=== PATIENT | male | born 1935 | race Caucasian/White ===

== ENCOUNTER 2018-06-11 16:04 | Inpatient (IN) | payer OTHER ==
[~2018-06-11] VITALS: Ht 185.4 cm; Wt 157.4 kg
--- NOTE | ~2018-06-11 | PROC ---
[address] [address] PROCEDURE REPORT Name: NED BROWN Room: [address] ADM IN M.R.#: [id number] Admission: 06/11/18 Attend Phys: Dale Kilpatrick MD Discharge: Date of : 37 Report #: [id number] THIS REPORT FOR: //name// For GI report, please see the Provation report in Perceptive 7 content. By: 0705Medical Records Staff ELDER /JASWINDER
--- NOTE | ~2018-06-11 | CON ---
[address] [address] CONSULTATION Name: NED BROWN Room: [address] IN .#: [id number] Admission: 06/11/18 Attend Phys: Dale Kilpatrick MD Discharge: Date of : 37 Report #: [id number] THIS REPORT FOR: //name// CC: Dale Patterson DATE OF SERVICE: 06/12/2018 REASON FOR CONSULTATION: Anemia and melanotic stool. HISTORY OF PRESENT ILLNESS: This is an 82-year-old male with history of AFib, who is on anticoagulation therapy. The patient reports that for the past couple of days, he has been having melanotic stool. His hemoglobin in the hospital was 10, but has dropped by 1 gram since admission. He denies any nausea, vomiting or hematemesis. He occasionally may have dysphagia type symptoms. The patient also reports that his last colonoscopy had been more than 5-10 years ago. He does not recall the findings. PAST MEDICAL HISTORY: Significant for: 1. History of AFib, on anticoagulation therapy. 2. Diabetes. 3. Anemia. 4. Diabetes mellitus. 5. ATN. ALLERGIES: No known drug allergy. MEDICATIONS: Please refer to MAR. SOCIAL HISTORY: The patient is a former smoker, but has not smoked for a year. He denies alcohol use. FAMILY HISTORY: Noncontributory. PHYSICAL EXAMINATION: VITAL SIGNS: Reveals blood pressure of 118/61, respirations 19, pulse 90, temperature 36.7. Note that he is on 4 liter of O2 nasal cannula and he uses nasal cannula during the night at home. LUNGS: Clear. CARDIOVASCULAR: Regular. ABDOMEN: Large, soft, nontender, nondistended. NEUROLOGIC: The patient is alert, oriented x 3. LABORATORY DATA: Reveal sodium of 146, potassium 4.2, BUN is 75, creatinine 1.4, glucose is 165, total bilirubin is 0.6, AST is 10, ALT 17, [place] [address] CONSULTATION Name: NED BROWN Gege Room: [address]#: [id number] Admission: 06/11/18 Attend Phys: Dale Kilpatrick MD Discharge: Date of : 37 Report #: [id number] phosphatase 59, lipase 271. TSH is 1.96. PT is 12.8, INR is 1.3. WBC is 8.5 with hemoglobin of 10.7 and platelet of 235. ASSESSMENT AND PLAN: The patient with melanotic stool and iron deficiency anemia. We will perform an upper endoscopy to rule out gastroduodenal ulcers. If this was negative, we will consider colonoscopy during this hospitalization. The patient is agreeable with plan. By: 1420 [id number] Clancy MD /nt
[2018-06-11 16:10] VITALS: BP 94/52
[2018-06-11 17:02] LABS: ABSOLUTE EOSINOPHILS 0.3 thou/uL (0.0-0.7); ABSOLUTE LYMPHOCYTES 1.1 thou/uL (0.8-5.3); ABSOLUTE MONOCYTES 0.7 thou/uL (0.0-1.2); ABSOLUTE NEUTROPHILS 6.4 thou/uL (1.6-8.1); BASOPHILS 0.5 %; EOSINOPHILS 3.2 %; HEMATOCRIT 33.5 % (42.0-52.0); HEMOGLOBIN 10.7 gm/dL (14.0-18.0); LYMPHOCYTES 12.5 %; MCH 28.9 pg (26.0-34.0); MCV 90.4 fL (80.0-100.0); MONOCYTES 7.7 %; NUCLEATED RBCS 0 /100WBC; PLATELET COUNT* 235 thou/uL (150-400); POLYS 76.1 %; RDW-CV 16.2 % (10.5-14.5); WBC 8.5 thou/uL (4.0-11.0)
[2018-06-11 17:10] LABS: INR 1.3; PROTIME 12.8 Seconds (9.20-11.50)
[2018-06-11 17:23] LABS: ANION GAP 4 mmol/L (7-16); BUN 75 mg/dL (7-18); CALCIUM 8.8 mg/dL (8.5-10.1); CHLORIDE 106 mmol/L (98-107); CO2 36 mmol/L (21-32); CREATININE 1.4 mg/dL (0.6-1.3); GLUCOSE 165 mg/dL (70-99); POTASSIUM 4.2 mmol/L (3.5-5.1); SODIUM 146 mmol/L (136-145)
[2018-06-11 17:27] LABS: ALBUMIN 2.6 g/dL (3.4-5.0); ALKALINE PHOSPHATASE 59 U/L (46-116); LIPASE 271 U/L (73-393); NT-PRO BRAIN NAT PEPTIDE 453 pg/mL (<300); SGOT 10 U/L (15-37); SGPT 17 U/L (30-65); TOTAL BILIRUBIN 0.6 mg/dL (<0.1-1.0); TOTAL PROTEIN 6.8 g/dL (6.4-8.2); TROPONIN-I LEVEL <0.06 ng/mL (<0.06)
[2018-06-11] MEDS ORDERED: PACERONE 200 M200 M1 PO (18:04)
[2018-06-11] MEDS ORDERED: NORVASC10 MG PO (18:04)
[2018-06-11] MEDS ORDERED: ELIQUIS5 MG PO (18:04)
[2018-06-11] MEDS ORDERED: COREG25 MG PO (18:05)
[2018-06-11] MEDS ORDERED: MIRALAX17 GM PO (18:05)
[2018-06-11] MEDS ORDERED: VITAMINC500 PO (18:06)
[2018-06-11] MEDS ORDERED: SULFACETAMIDE 115 M1 OPHTHALMIC (18:06)
[2018-06-11] MEDS ORDERED: B12INJ PO (18:06)
[2018-06-11] MEDS ORDERED: SYMBICORT160 MCG/4. INH (18:06)
[2018-06-11] MEDS ORDERED: DEMADEX20 MG PO (18:06)
[2018-06-11] MEDS ORDERED: VITAMIN D3400 UNIT PO (18:07)
[2018-06-11] MEDS ORDERED: COZAAR 25 MG TA25 M1 PO (18:07)
[2018-06-11] MEDS ORDERED: GLIPIZIDE-METF1 EAC1 PO (18:07)
[2018-06-11] MEDS ORDERED: PREDNISONE 10 M10 MG PO (18:08)
[2018-06-11] MEDS ORDERED: OMEGA 3 1,0001 EACH PO (18:08)
[2018-06-11] MEDS ORDERED: CRESTOR20 MG PO (18:08)
[2018-06-11] MEDS ORDERED: FLONASE 0.05%50 MCG NASAL (18:09)
[2018-06-11] MEDS ORDERED: MAPAP500 MG PO (18:09)
[2018-06-11] MEDS ORDERED: VOLTAREN GEL 1100 G1 TOP (18:10)
[2018-06-11 18:59] VITALS: BP 107/39
[2018-06-11 19:41] VITALS: BP 102/62
[2018-06-11 21:16] LABS: HEMATOCRIT 33.6 % (42.0-52.0); HEMOGLOBIN 10.8 gm/dL (14.0-18.0); MCH 28.8 pg (26.0-34.0); MCV 89.8 fL (80.0-100.0); RBC 3.74 mil/uL (4.50-6.00); RDW-CV 16.5 % (10.5-14.5)
[2018-06-11 22:04] LABS: % SATURATION 10 % (20-39); IRON 40 ug/dL (50-175)
[2018-06-12] VITALS (8 sets, daily range): BP systolic 88–118; BP diastolic 45–62
[2018-06-12 05:27] LABS: HEMATOCRIT 29.8 % (42.0-52.0); HEMOGLOBIN 9.6 gm/dL (14.0-18.0); MCH 29.6 pg (26.0-34.0); MCHC 32.3 g/dL (28.0-37.0); MCV 91.8 fL (80.0-100.0); MPV 8.6 fl. (7.2-11.1); RBC 3.25 mil/uL (4.50-6.00); WBC 8.8 thou/uL (4.0-11.0)
[2018-06-12 06:14] LABS: CALCIUM 8.5 mg/dL (8.5-10.1); CREATININE 1.3 mg/dL (0.6-1.3); MAGNESIUM 2.3 mg/dL (1.8-2.4); POTASSIUM 3.9 mmol/L (3.5-5.1)
--- NOTE | 2018-06-12 09:00 | EKG ---
[place] [address] ELECTROCARDIOGRAM REPORT Name: NED BROWN Room: [address] ADM IN .R.#: [id number] Admission: 06/11/18 Attend Phys: Dale Kilpatrick MD Discharge: Date of : 37 Report #: [id number] THIS REPORT FOR: //name// [facility] ED Test Date: 2018-06-11 Test Time: 16:28:44 Pat Name: NED BROWN Department: Room: [facility] Gender: M Trade Show Specialist: María Elena KYLE : 1935 Requested By: Radames Casas Order Number: [id number] MD: Joe Verdin Measurements Intervals [place] Rate: 74 P: [place]: QRS: -12 QRSD: 112 T: 66 QT: 396 QTc: 440 Interpretive Statements sinus rhythm Borderline intraventricular conduction delay Low voltage, precordial leads Baseline wander in lead(s) V2 No previous ECG available for comparison Electronically Signed On 06-12-2018 9:00:14 ASSISTANT by Joe Verdin [email or web address] <ELECTRONICALLY SIGNED> By: Joe Verdin MD, [facility] 06/12/18 0900 1628 1628 Joe Verdin MD, [facility] /EPI
[2018-06-12 17:26] LABS: BE 3.6 mmol/L (-2 to +3); pH 7.342 (7.340-7.450)
[2018-06-12 17:28] LABS: PCO2 57.2 mmHg (35.0-45.0); PO2 54.3 mmHg (75.0-100.0)
[2018-06-13 05:00] VITALS: BP 100/48
[2018-06-13 07:45] VITALS: BP 98/47
[2018-06-13 11:56] VITALS: BP 99/53
[2018-06-13 12:32] LABS: HEMATOCRIT 29.3 % (42.0-52.0); HEMOGLOBIN 9.4 gm/dL (14.0-18.0); MCH 29.1 pg (26.0-34.0); MCHC 32.2 g/dL (28.0-37.0); MCV 90.4 fL (80.0-100.0); MPV 8.7 fl. (7.2-11.1); RBC 3.24 mil/uL (4.50-6.00); RDW-CV 16.6 % (10.5-14.5); WBC 7.6 thou/uL (4.0-11.0)
[2018-06-13 12:39] LABS: CALCIUM 8.3 mg/dL (8.5-10.1); CREATININE 1.2 mg/dL (0.6-1.3); MAGNESIUM 2.2 mg/dL (1.8-2.4); POTASSIUM 4.3 mmol/L (3.5-5.1)
[2018-06-13 15:11] VITALS: BP 104/53
[2018-06-13 19:45] VITALS: BP 97/48
[2018-06-13 20:00] VITALS: BP 113/51
[2018-06-13 20:04] LABS: BE 2.2 mmol/L (-2 to +3)
[2018-06-13 20:16] LABS: HEMATOCRIT 29.3 % (42.0-52.0); HEMOGLOBIN 9.5 gm/dL (14.0-18.0); MCH 29.5 pg (26.0-34.0); MCHC 32.3 g/dL (28.0-37.0); MCV 91.3 fL (80.0-100.0); NUCLEATED RBCS 0 /100WBC; PLATELET COUNT* 202 thou/uL (150-400); RBC 3.21 mil/uL (4.50-6.00); RDW-CV 16.7 % (10.5-14.5); WBC 6.5 thou/uL (4.0-11.0)
[2018-06-13 20:29] LABS: CALCIUM 8.5 mg/dL (8.5-10.1); CREATININE 1.5 mg/dL (0.6-1.3); POTASSIUM 4.4 mmol/L (3.5-5.1)
[2018-06-13 20:39] LABS: ABSOLUTE LYMPHOCYTES 0.3 thou/uL (0.8-5.3); ABSOLUTE NEUTROPHILS 6.2 thou/uL (1.6-8.1)
[2018-06-13 20:40] LABS: ANISOCYTOSIS 1+; PLATELET ESTIMATE ADEQUATE
[2018-06-13 22:09] LABS: PCO2 72.5 mmHg (35.0-45.0); PO2 50.9 mmHg (75.0-100.0); pH 7.251 (7.340-7.450)
[2018-06-14] VITALS (10 sets, daily range): BP systolic 82–133; BP diastolic 42–70
--- NOTE | 2018-06-14 10:08 | CON ---
[address] [address] CONSULTATION Name: NED BROWN Room: [address] IN .R.#: [id number] Admission: 06/11/18 Attend Phys: Dale Kilpatrick MD Discharge: Date of : 37 Report #: [id number] THIS REPORT FOR: //name// CC: Dale Patterson REASON FOR CONSULTATION: Respiratory failure. HISTORY OF PRESENT ILLNESS: This is an 82-year-old male patient who was admitted to this facility on 06/11/2018 with anemia and melanotic stool. He has history of atrial fibrillation, on anticoagulation. Apparently, he was getting weaker and weaker with lethargy of few days' duration. His brought him to the hospital. Apparently, he had no nausea and no vomiting and he had no pain. Also, his mental status had been deteriorating for the last 6 months. There are reports of hallucination. He is not known to have history of dementia. He apparently was hypotensive in the ER and he had to be bolused with IV fluids. He was evaluated by GI during this hospitalization and he underwent endoscopy and he was also evaluated by Neurology. He had ABGs that demonstrated the followin.34//54 and this was done on 6 liter oxygen. Today, he is on 9 liters oxygen. He is arousable, protecting the airways, overweight gentleman, but he is a poor historian. He was able to tell me he smoked in the past, but quit a while ago, although he smoked for at least 20 years. He has oxygen at home and he could not tell me if he has COPD or not. LABORATORY DATA: His chest x-ray showed basilar infiltrate and signs of vascular congestion. His BNP was slightly elevated upon hospitalization. ALLERGIES: No known drug allergies. MEDICATIONS: Medications reviewed, which include risperidone, Protonix, insulin, potassium supplement, Zofran, melatonin and Tylenol. FAMILY HISTORY: Unobtainable. SOCIAL HISTORY: He is an ex-smoker, smoked for several number of years, not clear how many years for me, but no history of drug abuse or alcohol abuse. PAST MEDICAL HISTORY: Diabetes mellitus, obesity and atrial fibrillation. He has left below and right knee amputation. REVIEW OF SYSTEMS: Attempted with the patient. He denied fever, chills or blurring of vision. He denied any dysphagia or difficulty swallowing, although the nurses reported that she has concerns about him swallowing his pills. He denied shortness of breath, although he is on 9 liter oxygen. He denied change in urine habits or lower extremity edema. Please note, the patient is slightly confused and cannot verify the accuracy of the review [place] [address] CONSULTATION Name: NED BROWN Room: [address] IN ..#: [id number] Admission: 06/11/18 Attend Phys: Dale Kilpatrick MD Discharge: Date of : 37 Report #: [id number] PHYSICAL EXAMINATION: VITAL SIGNS: He is on 9 liters oxygen, O2 saturation of 91% to 92%, pulse rate of 86, breathing 20 times per minute and temperature 36.9. His blood pressure is 98/47. HEENT: Head normocephalic, atraumatic. Pupils are reactive to light. Oral cavity, moist mucous membrane. Mallampati of 3. External ears healthy and normal. NECK: Thick. CHEST: Diminished air movement bilaterally, with crackles. No definite wheezes. HEART: S1, S2. ABDOMEN: Obese, soft, lax and nontender. No masses felt. EXTREMITIES: Lower extremity, he has edema, right lower extremity. The left lower extremity is status post below-knee amputation. PSYCHIATRIC: Mood and affect difficult to evaluate, unable. NEUROLOGIC: Moving 4 extremities spontaneously. Confused. LYMPHATIC: No palpable lymph node. SKIN: Normal for age and race. LABORATORY DATA: His ABGs, as mentioned above. White blood count 8; hemoglobin 9.6, compared to 10.7 upon hospitalization and has platelets of 223,000. His INR is 1.3. His creatinine is 1.3 with elevated bicarbonate at 33, BUN of [address] scan of the head upon hospitalization did not show acute pathology. Chest x-ray upon hospitalization showed bibasilar opacities, atelectasis versus infiltrate, which was re-demonstrated on a repeat chest x-ray today, with signs of vascular congestion. IMPRESSION: 1. Hfuqn-zy-gxawuyi hypoxic and hypercapnic respiratory failure. 2. Chronic obstructive pulmonary disease. 3. Acute blood loss anemia. 4. Suspect obstructive sleep apnea. 5. The patient with elevated baseline bicarbonate level, suspect obesity hypoventilation syndrome. 6. Encephalopathy. 7. Gastrointestinal bleed. PLAN: At this point, with a pulmonary infiltrate, I cannot rule out infectious process, although atelectasis in differential diagnosis. I am going to start him on antibiotics. We will choose Zosyn due to history of mental status and concerns for aspiration. He will be on scheduled nebulization treatment. We will start him on noninvasive ventilation for now, support his breathing. Wean oxygen down as tolerated. He will be on scheduled nebulization treatments. [place] [address] CONSULTATION Name: NED BROWN Room: [address] IN [facility]#: [id number] Admission: 06/11/18 Attend Phys: Dale Kilpatrick MD Discharge: Date of : 37 Report #: [id number] Thank you for the consult. Of note, he might benefit from diuresis, but his blood pressure is borderline. <ELECTRONICALLY SIGNED> By: Chito Jaeger MD 06/14/18 1008 1151 1303Dsherrill Jaeger MD /nt
--- NOTE | 2018-06-14 10:28 | EKG ---
[place] [address] ELECTROCARDIOGRAM REPORT Name: NED BROWN Room: [address] ADM IN M.R.#: [id number] Admission: 06/11/18 Attend Phys: Dale Kilpatrick MD Discharge: Date of : 37 Report #: [id number] THIS REPORT FOR: //name// [facility] Test Date: 2018-06-13 Test Time: 20:00:22 Pat Name: NED BROWN Department: Room: [address] Gender: M Radio Communication Coordinator: [facility] : 1935 Requested By: Dale Kilpatrick Order Number: [id number] MD: Royer Song Measurements Intervals [place] Rate: 89 P: [place]: QRS: 65 QRSD: 119 T: -40 QT: 361 QTc: 440 Interpretive Statements Atrial fibrillation, rare pvc's Nonspecific intraventricular conduction delay Low voltage, extremity and precordial leads Compared to ECG 06/11/2018 16:28:44 Sinus rhythm no longer present Electronically Signed On 06-14-2018 10:28:10 STEAK SAUCE MAKER by Royer Song [email or web address] <ELECTRONICALLY SIGNED> By: Royer Song MD, FACC 06/14/18 1028 99 99 Royer Song MD, FAC /EPI
[2018-06-14 11:22] LABS: BE 4.6 mmol/L (-2 to +3); PCO2 49.8 mmHg (35.0-45.0); PO2 91.3 mmHg (75.0-100.0); pH 7.398 (7.340-7.450)
--- NOTE | 2018-06-14 11:51 | 2DMMODE ---
[place] [address] 2 D/M-MODE ECHOCARDIOGRAM Name: NED BROWN Room: [address] IN [facility]#: [id number] Admission: 06/11/18 Attend Phys: Dale Kilpatrick, Discharge: Date of : 39 Date of Service: 06/14/18 1151 Report #: [id number] THIS REPORT FOR: //name// APPROVED REPORT Study performed: 06/14/2018 10:38:48 EXAM: Comprehensive 2D, Doppler, and color-flow Echocardiogram Patient Location: In-Patient Room #: 224 Status: routine BSA: 2.72 HR: 92 bpm BP: 110/69 mmHg Rhythm: Atrial Fibrillation Other Information Study Quality: Good Indications Atrial Fibrillation Dyspnea 2D Dimensions IVSd: 13.35 (7-11mm) LVOT Diam: 20.06 (18-24mm) LVDd: 50.71 mm PWd: 14.32 (7-11mm) Ascending Ao: 38.07 (22-36mm) LVDs: 35.02 (25-40mm) Volumes Left Atrial Volume (Systole) LA ESV Index: 48.00 mL/m2 Aortic Valve AoV Peak Josh.: 2.60 m/s AO Peak Gr.: 27.07 mmHg LVOT Max P.70 mmHg AO Mean Gr.: 15.04 mmHg LVOT Mean P.80 mmHg LVOT Max V: 1.19 m/s AO V2 VTI: 46.86 cm LVOT Mean V: 0.76 m/s RUDOLPH (VTI): 1.51 cm2 LVOT V1 VTI: 22.43 cm Pulmonary Valve PV Peak Josh.: 1.08 m/s PV Peak Gr.: 4.63 mmHg Tricuspid Valve RAP Estimate: 15.00 [place] [address] 2 D/M-MODE ECHOCARDIOGRAM Name: NED BROWN Room: [address] IN [facility]#: [id number] Admission: 06/11/18 Attend Phys: Dale Kilpatrick, Discharge: Date of : 39 Date of Service: 06/14/18 1151 Report #: [id number] TR Peak Gr.: 23.31 mmHg RVSP: 38.00 mmHg PA Pressure: 38.00 mmHg Left Ventricle The left ventricle is normal size. There is normal LV segmental wall motion. Mild to moderate concentric left ventricular hypertrophy. Left ventricular systolic function is normal. The left ventricular ejection fraction is within the normal range. LVEF is 60-65%. This study is not technically sufficient to allow evaluation of the LV diastolic function due to atrial fibrillation. Right Ventricle The right ventricle is normal size. The right ventricular systolic function is normal. Atria Left atrium is severely dilated. The right atrium size is normal. Aortic Valve Severe aortic valve sclerosis. No aortic regurgitation is present. Moderate aortic stenosis. Mitral Valve There is mitral annular calcification. Trace mitral regurgitation. No evidence of mitral valve stenosis. Tricuspid Valve The tricuspid valve is normal in structure. Trace tricuspid regurgitation. estimated pa pressure 35 mm Hg Trace tricuspid regurgitation. estimated pa pressure 35 mm Hg Pulmonic Valve The pulmonary valve is normal in structure. Trace pulmonic regurgitation. Great Vessels The aortic root is normal in size. IVC is dilated and collapses <50% with inspiration. Pericardium There is no peric[place] [address] 2 D/M-MODE ECHOCARDIOGRAM Name: STEPHANIENED Room: [address] IN [facility].#: [id number] Admission: 06/11/18 Attend Phys: Dale Kilpatrick, Discharge: Date of : 37 Date of Service: 06/14/18 115 Report #: [id number] <Conclusion> Mild to moderate concentric left ventricular hypertrophy. LVEF is 60-65%. Left atrium is severely dilated. Moderate aortic stenosis. <ELECTRONICALLY SIGNED> By: Joe Verdin MD, [facility] 06/14/18 1151 115 1151 Jeo Verdin MD, FACC /INF
[2018-06-14 15:23] LABS: URINE BILIRUBIN NEGATIVE (Negative); URINE BLOOD 2+ (Negative); URINE COLOR YELLOW; URINE GLUCOSE-RANDOM NEGATIVE (Negative); URINE KETONES NEGATIVE (Negative); URINE LEUKOCYTES-REFLEX 1+ (Negative); URINE NITRITE-REFLEX NEGATIVE (Negative); URINE PROTEIN NEGATIVE (Negative); URINE UROBILINOGEN 0.2 E.U./dl (0.2-1.0)
[2018-06-14 15:26] LABS: URINE CLARITY HAZY
[2018-06-14 15:37] LABS: SQUAMOUS 0-3 Few /LPF (0-3)
[2018-06-14 15:38] LABS: BACTERIA-REFLEX None Seen /HPF (None Seen); CASTS None Seen /LPF (None Seen); URINE RBC 0-2 Rare /HPF (0-2); URINE WBC-REFLEX 0-5 Rare /HPF (0-5)
[2018-06-14 15:39] LABS: TRIPLE PHOSPHATE CRYSTALS 4-10 Moderate /LPF (None Seen)
--- NOTE | 2018-06-14 16:07 | PATH ---
[facility] [address] [place] [address] PATHOLOGY RPT PROCEDURE Name: STEPHANIEMICKY Room: [address] IN M.R.#: [id number] Admission: 06/11/18 Date of : 37 Discharge: Report #: [id number] Path Case #: [id number] [facility] Accession Number: [id number] . 01 Material submitted: . GASTRIC BIOPSY . 01 Clinical history: . None provided . 02 Diagnosis: Gastric biopsy: - Moderate chronic active gastritis with prominent atrophy, extensive intestinal metaplasia and easily identified Helicobacter pylori organisms, negative for granulomas and dysplasia. . (MARIA ELENA:mml; 06/14/2018) QLM/06/14/2018 . 02 Comment: Special stain: H. pylori immuno. . (MARIA ELENA:mml; 06/14/2018) . 02 Electronically signed: . Montez Goodrich MD, Pathologist NPI- [id number] . 01 Gross description: . The specimen is received in formalin, labeled "Micky Huertas, gastric biopsy". Received are two segments of pale guerrero soft tissue measuring 0.4 and 0.5 cm in maximum dimensions. The specimen is submitted entirely in cassette A1. (CAA; 06/13/2018) QAC/QAC . 02 Pathologist provided ICD-10: K29.50 . 02 CPT . 403860, Z94178 Specimen Comment: A courtesy copy of this report has been sent to Specimen Comment: [phone], , . Specimen Comment: Report sent to ,DR SAXENA / DR GARCIA Performed at: [address] [id number] MD Myke Mike MD Phone: [phone] [address] [address] PATHOLOGY RPT PROCEDURE Name: MICKY HUERTAS Room: [address] IN [facility]#: [id number] Admission: 06/11/18 Date of : 37 Discharge: Report #: [id number] Path Case #: [id number] Performed at: [address] [id number] MD Montez Goodrich MD Phone: [phone]
[2018-06-15] VITALS (20 sets, daily range): BP systolic 80–175; BP diastolic 44–142
[2018-06-15 09:15] LABS: CREATININE 1.4 mg/dL (0.6-1.3); MAGNESIUM 2.3 mg/dL (1.8-2.4); POTASSIUM 3.7 mmol/L (3.5-5.1)
[2018-06-15 10:42] LABS: BE 5.8 mmol/L (-2 to +3); PCO2 47.5 mmHg (35.0-45.0); PO2 63.2 mmHg (75.0-100.0); pH 7.431 (7.340-7.450)
[2018-06-16] VITALS (7 sets, daily range): BP systolic 83–132; BP diastolic 57–70
[2018-06-16 04:20] LABS: HEMATOCRIT 28.3 % (42.0-52.0); HEMOGLOBIN 9.3 gm/dL (14.0-18.0); MCH 29.4 pg (26.0-34.0); MCHC 32.8 g/dL (28.0-37.0); MCV 89.7 fL (80.0-100.0); MPV 8.9 fl. (7.2-11.1); RBC 3.16 mil/uL (4.50-6.00); RDW-CV 16.4 % (10.5-14.5); WBC 6.2 thou/uL (4.0-11.0)
[2018-06-16 04:56] LABS: CALCIUM 9.2 mg/dL (8.5-10.1); CREATININE 1.3 mg/dL (0.6-1.3); MAGNESIUM 2.2 mg/dL (1.8-2.4); POTASSIUM 3.4 mmol/L (3.5-5.1)
[2018-06-16 09:45] LABS: BE 5.2 mmol/L (-2 to +3); PCO2 48.8 mmHg (35.0-45.0); PO2 64.9 mmHg (75.0-100.0); pH 7.415 (7.340-7.450)
[2018-06-17] VITALS (9 sets, daily range): BP systolic 75–144; BP diastolic 47–76
[2018-06-17 05:05] LABS: HEMATOCRIT 28.2 % (42.0-52.0); HEMOGLOBIN 9.2 gm/dL (14.0-18.0); MCH 29.2 pg (26.0-34.0); MCHC 32.6 g/dL (28.0-37.0); MCV 89.3 fL (80.0-100.0); RBC 3.15 mil/uL (4.50-6.00); RDW-CV 17.1 % (10.5-14.5); WBC 6.9 thou/uL (4.0-11.0)
[2018-06-17 05:16] LABS: CALCIUM 8.8 mg/dL (8.5-10.1); CREATININE 1.3 mg/dL (0.6-1.3); MAGNESIUM 2.2 mg/dL (1.8-2.4); POTASSIUM 3.6 mmol/L (3.5-5.1)
[2018-06-18 01:07] VITALS: BP 143/75
[2018-06-18 04:00] VITALS: BP 133/64
[2018-06-18 04:45] LABS: HEMATOCRIT 26.8 % (42.0-52.0); HEMOGLOBIN 9.1 gm/dL (14.0-18.0); MCHC 33.9 g/dL (28.0-37.0); MCV 88.6 fL (80.0-100.0); MPV 9.2 fl. (7.2-11.1); RBC 3.02 mil/uL (4.50-6.00); RDW-CV 16.7 % (10.5-14.5)
[2018-06-18 05:02] LABS: CALCIUM 8.8 mg/dL (8.5-10.1); CREATININE 1.2 mg/dL (0.6-1.3); MAGNESIUM 2.2 mg/dL (1.8-2.4); POTASSIUM 3.4 mmol/L (3.5-5.1)
[2018-06-18 08:20] VITALS: BP 113/60
[2018-06-18 12:00] VITALS: BP 132/70
[2018-06-18 20:00] VITALS: BP 138/81
[2018-06-19 04:00] VITALS: BP 123/63
[2018-06-19 04:43] LABS: HEMATOCRIT 29.8 % (42.0-52.0); HEMOGLOBIN 9.4 gm/dL (14.0-18.0); MCH 28.5 pg (26.0-34.0); MCHC 31.6 g/dL (28.0-37.0); MCV 90.1 fL (80.0-100.0); MPV 9.4 fl. (7.2-11.1); RBC 3.31 mil/uL (4.50-6.00); RDW-CV 16.9 % (10.5-14.5); WBC 8.7 thou/uL (4.0-11.0)
[2018-06-19 05:42] LABS: CALCIUM 8.5 mg/dL (8.5-10.1); CREATININE 0.9 mg/dL (0.6-1.3); POTASSIUM 3.6 mmol/L (3.5-5.1)
[2018-06-19 08:00] VITALS: BP 121/67
[2018-06-19 11:51] VITALS: BP 140/70
[2018-06-19 16:00] VITALS: BP 145/82
[2018-06-19 20:00] VITALS: BP 136/74
[2018-06-20] VITALS: BP 145/66
[2018-06-20 04:45] VITALS: BP 103/50
[2018-06-20 08:00] VITALS: BP 121/53
[2018-06-20 13:06] LABS: HEMATOCRIT 31.1 % (42.0-52.0); MCH 28.7 pg (26.0-34.0); MCV 89.6 fL (80.0-100.0); MPV 8.4 fl. (7.2-11.1); NUCLEATED RBCS 0 /100WBC; PLATELET COUNT* 276 thou/uL (150-400); RBC 3.47 mil/uL (4.50-6.00); RDW-CV 16.7 % (10.5-14.5); WBC 14.2 thou/uL (4.0-11.0)
[2018-06-20 13:27] LABS: CALCIUM 8.2 mg/dL (8.5-10.1); CREATININE 0.9 mg/dL (0.6-1.3); POTASSIUM 3.3 mmol/L (3.5-5.1)
[2018-06-20 13:32] LABS: ABSOLUTE NEUTROPHILS 14.2 thou/uL (1.6-8.1); PLATELET ESTIMATE ADEQUATE
--- NOTE | 2018-06-20 14:09 | CON ---
[address] [address] CONSULTATION Name: NED BROWN Room: [address] IN .R.#: [id number] Admission: 06/11/18 Attend Phys: Dale Kilpatrick MD Discharge: Date of : 37 Report #: [id number] THIS REPORT FOR: //name// CC: Dale Patterson DATE OF SERVICE: 06/12/2018 HISTORY OF PRESENT ILLNESS: This is an 82-year-old male patient who was evaluated by me for memory problems. According to the family and the patient, the memory problem started about 1 year ago. It was predominantly for short-term memory. It started spontaneously without any trauma. There was no aggravating or relieving factors for that. In the last few months, it has become worse and especially in the last month or so. He is feeling dizzy, he is feeling weak and his memory problem is worse. His examination was carried out and it was noticed that he is severely anemic with an hemoglobin of 9.6. He also is hypotensive. That is being worked up. REVIEW OF SYSTEMS: Indicate that he had some hallucination. He was recommended to have evaluation for sleep apnea. He will not go there. They gave him some portable device and he wore that for 2 hours and then after that will not wear it. He has a history of atrial fibrillation and he is on anticoagulation. He does look like somewhat hard of hearing. He does have a history of diabetes. He has a history of amputation on the left side. This was his relevant 14-point review of system. He indicate his vision is about the same. He does have some respiratory difficulty. He denies any GI, , musculoskeletal, constitutional, dermatological, hematological, psychiatric, throat, allergic symptom associated with present symptomatology. PAST MEDICAL HISTORY: Positive for memory problems going on for a year or so. FAMILY HISTORY: Negative for early age stroke. SOCIAL HISTORY: He has a pretty supportive family and I talked to them. PHYSICAL EXAMINATION: Indicate the patient is alert, responsive. He did not know what month it is. He could not tell me what hospital he is in. He is also hard of hearing. His speech looks intact, but memory and fund of knowledge is diminished. Cranial nerve examination 2-12 is unremarkable. He cannot keep his eyes open all the time. He could not cooperate with the fundus examination. He appeared to be weak all over. I tried to do the position sense in the right leg. I am not sure he understands the instructions very well. His tone is unremarkable. Reflexes are diminished as expected with diabetes. There [place] [address] CONSULTATION Name: STEPHANIENED Gege Room: [address] IN ..#: [id number] Admission: 06/11/18 Attend Phys: Dale Kilpatrick MD Discharge: Date of : 37 Report #: [id number] PHYSICAL EXAMINATION: He is an obese individual who does not have any dysmorphic features of eyes, ears and face. Pulses in the right leg is difficult to feel. He has a history of atrial fibrillation. He does appear to have some respiratory difficulty. His blood pressure is 97/51, respirations 34, pulse is 86, temperature is 97.5. LABORATORY DATA: His white count is 8.8. His sodium is low-high at 148. B12 and TSH is normal. He did have a CT scan of the head, which showed no acute changes. IMPRESSION: I suspect this patient is developing dementia. That got decompensated because of multiple systemic problems. That includes anemia, but more importantly include respiratory problems with undiagnosed and untreated sleep apnea as the prime suspect. He has been recommended that evaluation, he did have some evaluation, but he will not do the proper evaluation until he does need that. RECOMMENDATIONS: 1. We will await systemic evaluation at the prior moment. 2. I will get an EEG done. 3. He will need full neurological workup, but that need to be done as an outpatient. 4. He needs a sleep study and again that may have to be done as an outpatient. <ELECTRONICALLY SIGNED> By: Yefri Rebolledo MD 06/20/18 1409 1035 1208Yefri Rebolledo MD /nt
--- NOTE | 2018-06-20 14:09 | EEG ---
[address] [address] EEG STUDY REPORT Name: NED BROWN Room: [address] IN ..#: [id number] Admission: 06/11/18 Attend Phys: Dale Kilpatrick MD Discharge: Date of : 37 Report #: [id number] THIS REPORT FOR: //name// CC: Dale Patterson DATE OF SERVICE: 06/12/2018 This patient is being evaluated for altered mental status. EEG is done to further evaluate that. Background activity in this patient's EEG is about 7 Hz and 30 microvolt. The patient appeared to be asleep during part of the EEG and that is difficult to interpret, but looks more slow. Photic stimulation is unremarkable. Throughout the record, no active epileptiform activity was noticed. IMPRESSION: This is an abnormal EEG because it is disorganized and poorly formed. That is a nonspecific abnormality, which can occur with encephalopathy, effect of psychotropic medication, dementia, etc. Clinical correlation is recommended. <ELECTRONICALLY SIGNED> By: Yefri Rebolledo MD 06/20/18 1409 0843 0850Yefri Rebolledo MD /nt
[2018-06-20 16:41] VITALS: BP 124/81
[2018-06-21] VITALS: BP 131/81
[2018-06-21 03:32] VITALS: BP 167/74
[2018-06-21 09:00] VITALS: BP 144/89
[2018-06-21 09:34] LABS: ABSOLUTE EOSINOPHILS 0.1 thou/uL (0.0-0.7); ABSOLUTE LYMPHOCYTES 0.6 thou/uL (0.8-5.3); ABSOLUTE MONOCYTES 0.7 thou/uL (0.0-1.2); ABSOLUTE NEUTROPHILS 9.9 thou/uL (1.6-8.1); BASOPHILS 0.2 %; EOSINOPHILS 1.3 %; HEMATOCRIT 29.8 % (42.0-52.0); HEMOGLOBIN 9.7 gm/dL (14.0-18.0); MCH 28.8 pg (26.0-34.0); MCHC 32.6 g/dL (28.0-37.0); MCV 88.2 fL (80.0-100.0); MONOCYTES 6.3 %; MPV 8.4 fl. (7.2-11.1); NUCLEATED RBCS 0 /100WBC; PLATELET COUNT* 279 thou/uL (150-400); POLYS 87.2 %; RBC 3.38 mil/uL (4.50-6.00); RDW-CV 17.1 % (10.5-14.5); WBC 11.4 thou/uL (4.0-11.0)
[2018-06-21 09:46] LABS: CALCIUM 8.7 mg/dL (8.5-10.1); CREATININE 0.8 mg/dL (0.6-1.3); POTASSIUM 3.2 mmol/L (3.5-5.1)
[2018-06-21 15:40] VITALS: BP 147/80
[2018-06-22 00:29] VITALS: BP 139/73
[2018-06-22 04:00] VITALS: BP 151/82
[2018-06-22 12:04] VITALS: BP 139/89
[2018-06-22] MEDS ORDERED: ARICEPT10 M1 PO (12:30)
[2018-06-22] MEDS ORDERED: BENADRYL25 MG PO (12:31)
[2018-06-22] MEDS ORDERED: GENTLE LAXATIVE5 M1 RECTAL (12:31)
[2018-06-22] MEDS ORDERED: IPRAT-ALBUT 0.5-3 ML INH (12:33)
[2018-06-22] MEDS ORDERED: HALOPERIDOL 5 MG5 MG PO (12:34)
[2018-06-22] MEDS ORDERED: HUMALOG100 UNIT/1 SUBQ ×2 (12:34→12:35)
[2018-06-22] MEDS ORDERED: LANTUS SUBQ (12:36)
[2018-06-22] MEDS ORDERED: MELATONIN5 M1 PO (12:36)
[2018-06-22] MEDS ORDERED: MILK OF MA2400 MG/10 PO (12:37)
[2018-06-22] MEDS ORDERED: NAMENDA 5 MG TAB5 M1 PO (12:38)
[2018-06-22] MEDS ORDERED: CEFDINIR300 MG PO (12:38)
[2018-06-22] MEDS ORDERED: PHENERGAN 25 MG25 M1 PO (12:39)
[2018-06-22] MEDS ORDERED: PREDNISONE 20 M20 MG PO (12:39)
[2018-06-22] MEDS ORDERED: PROTONIX40 M1 PO (12:40)
[2018-06-22] MEDS ORDERED: AZITHROMYCIN 2250 MG PO (12:42)
[2018-06-22] MEDS ORDERED: ONDANSETRON HCL4 M2 PO (12:42)
[2018-06-22] MEDS ORDERED: ZYVOX600 MG PO (12:42)
[2018-06-22 14:07] VITALS: BP 139/89
[2018-06-22 14:51] VITALS: BP 139/89
== END 2018-06-22 14:44 | DRG 377 ==
LOC: M.ERS 16:04 → M.TBA-ER 17:36 → M.2W 17:36 → M.ICU 06-14 10:40 → M.3W 06-17 09:54
PROVIDERS: Emergency Medicine; Internal Medicine; Internal Medicine Gastroenterology; ADMIT Internal Medicine
PROC: 0DB68ZX Excision of Stomach, Via Natural or Artificial Opening Endoscopic, Diagnostic (ICD-10-PCS; principal; 2018-06-12)
PROC: 5A09357 Assistance with Respiratory Ventilation, Less than 24 Consecutive Hours, Continuous Positive Airway Pressure (ICD-10-PCS; 2018-06-13)
PROC: 02HV33Z Insertion of Infusion Device into Superior Vena Cava, Percutaneous Approach (ICD-10-PCS; 2018-06-14)
PROC: 5A09357 Assistance with Respiratory Ventilation, Less than 24 Consecutive Hours, Continuous Positive Airway Pressure (ICD-10-PCS; 2018-06-14)
PROC: 5A09357 Assistance with Respiratory Ventilation, Less than 24 Consecutive Hours, Continuous Positive Airway Pressure (ICD-10-PCS; 2018-06-15)
PROC: 5A09357 Assistance with Respiratory Ventilation, Less than 24 Consecutive Hours, Continuous Positive Airway Pressure (ICD-10-PCS; 2018-06-16)
PROC: 5A09357 Assistance with Respiratory Ventilation, Less than 24 Consecutive Hours, Continuous Positive Airway Pressure (ICD-10-PCS; 2018-06-17)
PROC: 5A09357 Assistance with Respiratory Ventilation, Less than 24 Consecutive Hours, Continuous Positive Airway Pressure (ICD-10-PCS; 2018-06-18)
DX: K29.71 Gastritis, unspecified, with bleeding (principal); N17.0 Acute kidney failure with tubular necrosis; J96.21 Acute and chronic respiratory failure with hypoxia; J96.22 Acute and chronic respiratory failure with hypercapnia; G92 Toxic encephalopathy; J69.0 Pneumonitis due to inhalation of food and vomit; D62 Acute posthemorrhagic anemia; Z68.42 Body mass index [BMI] 45.0-49.9, adult; G47.33 Obstructive sleep apnea (adult) (pediatric); I35.0 Nonrheumatic aortic (valve) stenosis; F03.90 Unspecified dementia, unspecified severity, without behavioral disturbance, psychotic disturbance, mood disturbance, and anxiety; K44.9 Diaphragmatic hernia without obstruction or gangrene; J44.9 Chronic obstructive pulmonary disease, unspecified; E11.9 Type 2 diabetes mellitus without complications; E66.9 Obesity, unspecified; I48.91 Unspecified atrial fibrillation; Z89.512 Acquired absence of left leg below knee; Z89.611 Acquired absence of right leg above knee; Z87.891 Personal history of nicotine dependence; Z78.1 Physical restraint status

== ENCOUNTER 2018-06-24 14:47 | Inpatient (IN) | payer OTHER ==
[~2018-06-24] VITALS: Ht 175.3 cm; Wt 160.1 kg
[~2018-06-24 14:47] MED LIST: ARICEPT10 M1 PO; AZITHROMYCIN 2250 MG PO; B12INJ PO; BENADRYL25 MG PO; CEFDINIR300 MG PO; COREG25 MG PO; COZAAR 25 MG TA25 M1 PO; CRESTOR20 MG PO; DEMADEX20 MG PO; ELIQUIS5 MG PO; FLONASE 0.05%50 MCG NASAL; GENTLE LAXATIVE5 M1 RECTAL; GLIPIZIDE-METF1 EAC1 PO; HALOPERIDOL 5 MG5 MG PO; HUMALOG100 UNIT/1 SUBQ; IPRAT-ALBUT 0.5-3 ML INH; LANTUS SUBQ; MAPAP500 MG PO; MELATONIN5 M1 PO; MILK OF MA2400 MG/10 PO; MIRALAX17 GM PO; NAMENDA 5 MG TAB5 M1 PO; NORVASC10 MG PO; OMEGA 3 1,0001 EACH PO; ONDANSETRON HCL4 M2 PO; PACERONE 200 M200 M1 PO; PHENERGAN 25 MG25 M1 PO; PREDNISONE 10 M10 MG PO; PREDNISONE 20 M20 MG PO; PROTONIX40 M1 PO; SULFACETAMIDE 115 M1 OPHTHALMIC; SYMBICORT160 MCG/4. INH; VITAMIN D3400 UNIT PO; VITAMINC500 PO; VOLTAREN GEL 1100 G1 TOP; ZYVOX600 MG PO
[2018-06-24 14:51] VITALS: BP 129/57
--- NOTE | 2018-06-24 14:54 | NUR ---
[facility] CALLED, THEY ARE SENDING SOMEONE TO ATTEMPT IV ON PT.
[2018-06-24] MEDS ORDERED: BISACODYL SUPP10 MG RECTAL (15:10)
[2018-06-24] MEDS ORDERED: GERI-LANTA LIQ355 ML PO (15:15)
[2018-06-24 15:35] LABS: HEMOGLOBIN 9.9 gm/dL (14.0-18.0); MCH 28.9 pg (26.0-34.0); MCV 90.1 fL (80.0-100.0); NUCLEATED RBCS 0 /100WBC; PLATELET COUNT* 262 thou/uL (150-400); RBC 3.44 mil/uL (4.50-6.00); RDW-CV 17.3 % (10.5-14.5)
[2018-06-24 15:45] LABS: ANION GAP 1 mmol/L (7-16); BUN 18 mg/dL (7-18); CALCIUM 8.3 mg/dL (8.5-10.1); CHLORIDE 105 mmol/L (98-107); CO2 37 mmol/L (21-32); CREATININE 1.1 mg/dL (0.6-1.3); GLUCOSE 186 mg/dL (70-99); INR 1.1; POTASSIUM 4.1 mmol/L (3.5-5.1); PROTIME 11.4 Seconds (9.20-11.50); SODIUM 143 mmol/L (136-145)
[2018-06-24 16:01] LABS: ABSOLUTE LYMPHOCYTES 0.3 thou/uL (0.8-5.3); ABSOLUTE MONOCYTES 0.5 thou/uL (0.0-1.2); ABSOLUTE NEUTROPHILS 12.2 thou/uL (1.6-8.1); PLATELET ESTIMATE ADEQUATE
[2018-06-24 16:02] LABS: ANISOCYTOSIS 1+; MICROCYTES 1+; POIKILOCYTOSIS 1+
[2018-06-24 16:07] LABS: ALBUMIN 2.5 g/dL (3.4-5.0); ALKALINE PHOSPHATASE 71 U/L (46-116); CK-MB MASS 0.8 ng/mL (<0.5-3.6); LIPASE 505 U/L (73-393); MAGNESIUM 2.5 mg/dL (1.8-2.4); NT-PRO BRAIN NAT PEPTIDE 1226 pg/mL (<300); SGOT 24 U/L (15-37); SGPT 37 U/L (30-65); TOTAL BILIRUBIN 0.7 mg/dL (<0.1-1.0); TOTAL PROTEIN 6.5 g/dL (6.4-8.2); TROPONIN-I LEVEL <0.06 ng/mL (<0.06)
--- NOTE | 2018-06-24 17:33 | NUR ---
RAUL NOTIFIED UPON PT RETURN FROM CT. PT CONNECTED TO MONITOR AND O2
[2018-06-24 17:52] LABS: BE 8.9 mmol/L (-2 to +3); pH 7.376 (7.340-7.450)
[2018-06-24 17:54] LABS: PCO2 62.6 mmHg (35.0-45.0)
[2018-06-24 18:19] VITALS: BP 120/65
--- NOTE | 2018-06-24 19:01 | NUR ---
PT ORIENTED TO ROOM AND UNIT. BED LOW AND LOCKED, SIDE RAILS UPX 3, CALL LIGHT IN REACH. TIRUN AND CLEAN PT AND PLACE BARRIER CREAM TO BOTTOM. WILL PASS ONTO NIGHT RN.
[2018-06-24 20:00] VITALS: BP 112/51
[2018-06-25] VITALS: BP 128/52
[2018-06-25 04:00] VITALS: BP 110/60
[2018-06-25] MEDS ORDERED: TYLENOL325 MG PO (04:43)
[2018-06-25] MEDS ORDERED: IPRAT-ALBUT 0.5-3 ML INH (05:00)
[2018-06-25] MEDS ORDERED: NYAMYC15 GM TOP (05:07)
[2018-06-25 05:32] LABS: ABSOLUTE LYMPHOCYTES 0.6 thou/uL (0.8-5.3); ABSOLUTE MONOCYTES 0.6 thou/uL (0.0-1.2); ABSOLUTE NEUTROPHILS 10.2 thou/uL (1.6-8.1); BASOPHILS 0.2 %; EOSINOPHILS 0.2 %; HEMATOCRIT 29.8 % (42.0-52.0); HEMOGLOBIN 9.4 gm/dL (14.0-18.0); LYMPHOCYTES 5.1 %; MCH 28.6 pg (26.0-34.0); MCHC 31.7 g/dL (28.0-37.0); MCV 90.2 fL (80.0-100.0); MONOCYTES 5.4 %; NUCLEATED RBCS 0 /100WBC; PLATELET COUNT* 224 thou/uL (150-400); POLYS 89.1 %; WBC 11.5 thou/uL (4.0-11.0)
[2018-06-25 06:13] LABS: CALCIUM 8.2 mg/dL (8.5-10.1); CREATININE 0.9 mg/dL (0.6-1.3); POTASSIUM 3.4 mmol/L (3.5-5.1)
--- NOTE | 2018-06-25 07:45 | NUR ---
ASSUMED PT CARE AT 1930. PT AWAKE AND ORIENTED X4. CAN BE FORGETFUL AT TIMES. VSS ON 7L OF O2. PLACED ON HIGH BACK REST. DENIES ANY CHEST PAIN. PROJECT GEOPHYSICIST IN PLACE TRACING AFIB. REDNESS/EXCORIATION NOTED ON JUSTINE-AREA AND PANUS, WOUND CARE COMPLETED AND WOUND CARE CONSULT PLACED. CALL LIGHT WITHIN REACH. HOURLY ROUNDING DONE FOR PT SAFETY.
[2018-06-25 08:00] VITALS: BP 137/70
--- NOTE | 2018-06-25 10:14 | EKG ---
[place] [address] ELECTROCARDIOGRAM REPORT Name: NED BROWN Room: [address] ADM IN .R.#: [id number] Admission: 06/24/18 Attend Phys: Kemal Carlton MD Discharge: Date of : 39 Report #: [id number] THIS REPORT FOR: //name// [facility] ED Test Date: 2018-06-24 Test Time: 14:50:36 Pat Name: NED BROWN Department: Room: [facility] Gender: M Project Planner: SUAD : 1935 Requested By: Red Peterson Order Number: [id number] MD: Donato Gonzalez Measurements Intervals [place] Rate: 114 P: [place]: QRS: -17 QRSD: 101 T: 19 QT: 415 QTc: 572 Interpretive Statements Atrial fibrillation Borderline left axis deviation Anteroseptal infarct, age indeterminate Compared to ECG 06/13/2018 20:00:22 Myocardial infarct finding now present Intraventricular conduction delay no longer present Electronically Signed On 06-25-2018 10:14:30 DATA PROCESSING AUDITOR by Donato Gonzalez [email or web address] <ELECTRONICALLY SIGNED> By: Donato Gonzalez MD, FAC 06/25/18 1014 1450 1450 Donato Gonzalez MD, [facility] /EPI
[2018-06-25 12:00] VITALS: BP 113/53
--- NOTE | 2018-06-25 12:14 | NUR ---
ASSUME PT CARE AT 0700, PT LYING IN BED, CALL LIGHT IN REACH, TELEPHONE COLLECTOR TRACING AFIB, VSS, REMAINS ON 8LPM O2 VIA NC. MULTIPLE CONSULTS IN PLACE, DOPPLER OF BLE ORDERED FOR TODAY. LS DIMINISHED IN ALL LOBES, LABORED/SHALLOW BREATHING. PT IS ON BEDREST AT THIS TIME. WILL CONT POC.
[2018-06-25 13:48] LABS: BE 9.9 mmol/L (-2 to +3); PO2 63.8 mmHg (75.0-100.0); pH 7.342 (7.340-7.450)
[2018-06-25 13:53] LABS: PCO2 71.4 mmHg (35.0-45.0)
--- NOTE | 2018-06-25 14:36 | NUR ---
INITIAL ASSESSMENT: CM SPK W/PT AND SPOUSE TO DISCUSS D/C PLANNING, HOME SITUATION AND TO EDU PT ON CM ROLE. PT'S SPOUSE, KATHI INFORMED CM, PT LIVES @ HOME W/SPOUSE. SPOUSE ASSIST PT W/ 5 OF 6 ADLs. PT HAS CARRERA AROUND W/C & WALKER @ HOME. PT WAS ADMITTED TO [facility] ON & RTRN TO HOSPITAL ON 06/24/18. CM CONFIRMED W/KAITLYNN, ADMISSION, THAT PT IS OKAY TO RTRN TO [facility] UPON D/C. PT NEED PT & OT ORDERS. WILL HAVE PT EVAL AND TX WHEN MORE MEDICALLY STABLE. CM WILL CONT TO FOLLOW TO PROVIDE SUPPORT/ASSISTANCE PRN.
[2018-06-25 15:18] VITALS: BP 113/59
[2018-06-25 16:20] LABS: BE 11.2 mmol/L (-2 to +3); pH 7.392 (7.340-7.450)
[2018-06-25 16:25] LABS: PCO2 64.2 mmHg (35.0-45.0); PO2 140.7 mmHg (75.0-100.0)
--- NOTE | 2018-06-25 18:29 | NUR ---
PT LYING IN BED, TOPLINE BEADING MACHINE TENDER TRACING AFIB. A&O X2-3, VENTI MASK ON D/T PT REFUSING BIPAP, LS DIMINISHED IN ALL LOBES. NPO AFTER MIDNIGHT FOR IVC FILTER PLACEMENT, LOVENOX RESTARTED, DOPPLER OF BLE NEG. PT TO HAVE REPEAT ABG IN AM. HOURLY ROUNDING COMPLETED, VSS.
[2018-06-25 20:00] VITALS: BP 111/63
[2018-06-26] VITALS (12 sets, daily range): BP systolic 95–136; BP diastolic 51–79
--- NOTE | 2018-06-26 05:30 | NUR ---
ASSUMED PT CARE @1930. AWAKE AND ORIENTED X 2-3, CAN BE FORGETFUL AT TIMES. VSS ON HIGH FLOW CANNULA AT 6L. REFUSED TO USE BIPAP AND VENTI MASK EVEN AFTER EDUCATION. O2 SAT IS AT 92-94%. STILL WITH SHORTNESS OF AIR. ENCOURAGED DEEP BREATHING. RECLAMATION SUPERVISOR IN PLACE TRACING AFIB. FOR INFERIOR VENACAVA FILTER PLACEMENT THIS AM. CONSENT SIGNED BY DPOA (). MAINTAINED ON NPO POST MIDNIGHT. CALL LIGHT WITHIN REACH. HOURLY ROUNDING DONE FOR PT SAFETY.
--- NOTE | 2018-06-26 10:23 | NUR ---
WOUND CARE NOTE: CONSULT RECEIVED FOR EXCORIATION. PATIENT WITH DENUDED SKIN UNDERNEATH ABDOMINAL FOLD. PATIENT ALSO HAS DENUDED SKIN BETWEEN THIGHS/GROIN AREA WITH POSSIBLY A FUNGAL COMPONENT EVIDENCED BY RED SATELITE LESIONS. NURSES USING INTERDRY AG, WOULD RECOMMEND CONTINUING TO DO SO. EDUCATED PATIENT AND FAMILY MEMBER IN ROOM ON FINDINGS AND RECOMMENDATIONS, COMMUNICATED UNDERSTANDING. RECOMMEND CLEANSE AFFECTED AREA WELL WITH SOAP AND WATER, DRY WELL. APPLY SINGLE LAYER OF INTERDRY AG. PERFORM DAILY.
--- NOTE | 2018-06-26 10:28 | NUR ---
ASSUMED PT CARE REPORT RECEIVED FROM NURSE. 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 VSS. ON 5 L HIGH FLOW CANULA SATURATION IS AT 94%. DR YANG NURSE CALLED ABOUT EGD RESULT FROM 06/12. PT HAS H PYLORI ACCORDING TO THE EGD RESULT. NURSE SUGGESTED SOME ANITBIOTICS BUT NO ORDERS GIVEN HOSPITALIST DOCTOR WOULD HAVE TO AGREE. DR JEAN PAGED, AWAITING FOR CALL BACK. PT IS SCHEDULED FOR AN IVC FILTER PLACEMENT TODAY. PT RECEIVED LOVENOX AT [address] GEE CONTACTED REGARDING DOES OF LOVENOX THIS AM. NURSE SPOKE WITH MAYA ROSS WHO SAYS THAT IS OK WITH GIVEN LOVENOX TODAY. DO NURSE ADMINISTERED LOVENOX ORDERED. PT TRANSFERED TO [place] ROOM BED WHICH HAS BEEN FIXED BY [facility]. WILL CONTINUE TO MONITOR PT.
--- NOTE | 2018-06-26 16:14 | NUR ---
PT CAME BACK FROM [facility] TEST PROGRAM MANAGER AT AROUND 1350 ON [place] ROOM BED ACCOMPANIED BY CARDIAC LAB TECHS. REPLACED ON 5 L NC. SATURATION 97%. VSS. ATE LUNCH. RIGHT GROIN AREA IS INTACT. NO BLEEDING NOTICED. POST PROCEDURE VITALS ARE BEING MONITORED PER PROTOCOL. Q2TURN, BDEPAN PROVIDED NEEDED. NO INSULIN GIVEN ACCUCHECK WAS 91.CALL LIGHT AT REACH. WILL CONTINUE TO MONITOR
--- NOTE | 2018-06-26 16:44 | NUR ---
I have reviewed the documentation by TRAVIS SHANNON from TODAY 06/26/18 and I concur with it. JAMEL CAMEJO
[2018-06-27] VITALS: BP 120/62
[2018-06-27 02:55] LABS: ABSOLUTE EOSINOPHILS 0.1 thou/uL (0.0-0.7); ABSOLUTE LYMPHOCYTES 0.7 thou/uL (0.8-5.3); ABSOLUTE MONOCYTES 0.5 thou/uL (0.0-1.2); ABSOLUTE NEUTROPHILS 7.9 thou/uL (1.6-8.1); BASOPHILS 0.3 %; EOSINOPHILS 1.3 %; HEMATOCRIT 26.3 % (42.0-52.0); HEMOGLOBIN 8.6 gm/dL (14.0-18.0); LYMPHOCYTES 7.5 %; MCH 29.1 pg (26.0-34.0); MCHC 32.8 g/dL (28.0-37.0); MCV 88.7 fL (80.0-100.0); MONOCYTES 5.7 %; MPV 8.7 fl. (7.2-11.1); NUCLEATED RBCS 0 /100WBC; PLATELET COUNT* 175 thou/uL (150-400); POLYS 85.2 %; RBC 2.97 mil/uL (4.50-6.00); RDW-CV 17.4 % (10.5-14.5); WBC 9.3 thou/uL (4.0-11.0)
[2018-06-27 04:00] VITALS: BP 125/67
[2018-06-27 04:01] LABS: ESR (SEDRATE) 48 mm/hr (0-20)
--- NOTE | 2018-06-27 05:55 | NUR ---
ASSUMED PT CARE AT 1930. PT AWAKE AND ORIENTED X4. VSS ON 5L OF O2 PER [facility]. ADVANCED PRACTICE PROVIDER IN PLACE TRACING AFIB, RATE CONTROLLED. DENIES ANY PAIN NOR DISCOMFORT. FREQUENT REPOSITIONING DONE. POST IVC FILTER INSERTION SITE DRY AND INTACT. CALL LIGHT WITHIN REACH. HOURLY ROUNDING DONE FOR PT COMFORT.
[2018-06-27 06:07] LABS: BE 7.1 mmol/L (-2 to +3); PO2 63.1 mmHg (75.0-100.0); pH 7.395 (7.340-7.450)
[2018-06-27 06:10] LABS: PCO2 55.5 mmHg (35.0-45.0)
[2018-06-27 08:00] VITALS: BP 115/61
--- NOTE | 2018-06-27 10:14 | CON ---
[address] [address] CONSULTATION Name: NED BROWN Room: [address] ADM IN M.R.#: [id number] Admission: 06/24/18 Attend Phys: Jess Carlton MD Discharge: Date of : 39 Report #: [id number] THIS REPORT FOR: //name// CC: JESS Graciajoel DO Imer Patterson MD DATE OF SERVICE: 06/25/2018 PULMONARY CONSULTATION ATTENDING PHYSICIAN: Jess Carlton M.D. PRIMARY CARE PHYSICIAN: Imer Patterson M.D. LOCATION: The patient is located in [facility] in room 202. Thank you for referring the above patient for Pulmonary consultation. I saw the patient in the hospital in room 202 on 06/25/2018. HISTORY OF PRESENT ILLNESS: The patient is an 82-year-old male, very remote smoker, who had altered mental status, peripheral edema and confusion and was in [facility] only for a couple of days and then transferred over here. His O2 sats were low. He was on 4-5 liters at [facility]. He is hypoxic and hypercarbic and he was on 6-7 liters here. He had a CT angio of the chest done yesterday afternoon after admission and he has small pulmonary emboli, one in the right lower lobe interlobar artery and also in the right middle lobe artery. No definite pulmonary hypertension or right heart strain, but certainly more short of breath and he is having some CO2 retention also. Most of the history is given by the at the bedside, who is a relatively good historian. The patient was on Eliquis in the past for his atrial fibrillation. He has been off of it for several days since he has been in the hospital and at [facility]. PAST MEDICAL HISTORY: He has a history of upper GI bleed. He has a history of chest pain, also congestive heart failure and diabetes with nephropathy, neuropathy and some vasculopathy. ALLERGIES: HE HAS ALLERGIES OR INTOLERANCE TO BENZODIAZEPINES, WHICH GIVE HIM HYPOVENTILATION. MEDICATIONS: His outpatient medications are multiple, including carvedilol 25 mg b.i.d., rosuvastatin, Crestor 20 mg at bedtime, insulin lispro 100 units subcutaneous scale, azithromycin 250 mg daily, DuoNebs treatments 4 [place] [address] CONSULTATION Name: NED BROWN Room: [address] IN [facility]#: [id number] Admission: 06/24/18 Attend Phys: Jess Carlton MD Discharge: Date of : 39 Report #: [id number] and nystatin. He was on donepezil 10 mg daily for dementia, also Haldol 5 mg p.r.n. anxiety and agitation. He was on Namenda 5 mg daily. Prednisone taper was on 20 mg daily; he is now on 60 mg daily. Protonix is 40 mg b.i.d. and Zyvox dose was 600 mg b.i.d. He was on amiodarone, but that has been discontinued. The apixaban 5 mg b.i.d. has been discontinued. 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 He was 220 pounds approximately 30-40 years ago when he and his first got . FAMILY HISTORY: Positive for diabetes and positive for coronary artery disease. SOCIAL HISTORY: The patient is , never been a smoker. Denies any illicit drug use. Again, always has been relatively big, but has gotten larger over the last several years. Not working outside the home at this time. REVIEW OF SYSTEMS: A 14-point review of systems reviewed and negative, except for pertinent positives noted in the HPI. He has never had a history of DVT or pulmonary emboli in the past, according to his . He has never had an IVC filter in place. PHYSICAL EXAMINATION: GENERAL: On exam, an 82-year-old male, in mild distress. He is nonverbal at this time and not very responsive to me. VITAL SIGNS: Currently, his blood pressure is 137/70; heart rate 76; respirations are 20-24, minimally labored at this time and temperature is 36.5 degrees. He is 5 feet 8 inches tall and weight is 156 kilograms or 325 pounds and BMI is 50. HEENT: Mucous membranes are moist. He is edentulous, upper and lower. NECK: He has thick redundant neck tissue in his neck, probably size 20 collar. No masses or adenopathy. No stridor. CHEST: Shows a few rhonchi and expiratory wheeze, some shallow breath sounds. CARDIOVASCULAR: Regular rate and rhythm, without murmur, gallop or rub. Heart rate 60. No S3 is noted. ABDOMEN: Obese, without masses or megaly. EXTREMITIES: He has 1-2+ edema on the right leg. Left leg has a BKA, without tenderness. He does move all fours to tactile stimuli. NEUROLOGIC: His mentation comes and goes. Occasionally, he will wake up and answer questions and swallow pills. He is not doing that at least at this time. LABORATORY DATA: Laboratories from 06/25/2018 show hemoglobin of 9.4, white count 11,500. Previous hemoglobin 24 hours prior was 9.9. Platelets are 224,000, normal differential. Sodium is 142, potassium is 3.4, bicarbonate is elevated at 35, BUN 17, creatinine 0.9, glucose is 105 and calcium is 8.2. ABGs yesterday afternoon on 5 liters showed a pO2 of 54, pH of 7.37, pCO2 of 62, [place] [address] CONSULTATION Name: STEPHANIENED Room: [address] IN [facility].#: [id number] Admission: 06/24/18 Attend Phys: Jess Carlton MD Discharge: Date of : 39 Report #: [id number] bicarbonate is 36 and a sat of 88%. Currently on 8 liters, his saturation is 97%; on 6 liters, he is 93%, which is adequate. Chest x-ray shows COPD, hyperinflation and heart is upper limits of normal. CT angio of the chest shows small pulmonary emboli, although they are present and I concur with the radiologist, in the right lower lobe interlobar artery and also in the right middle lobe artery. Upper lobes appear to be clear. No clots in the left lung. Venous Dopplers were checked and negative this morning for DVT. IMPRESSION: 1. Hypoxemia, multifactorial. 2. Acute hypoxic and hypercarbic respiratory failure. 3. Small pulmonary emboli, right lower lobe and right middle lobe, probably from right leg. 4. Diabetes mellitus with nephropathy and vasculopathy, also neuropathy. 5. Morbid obesity. 6. Question of upper gastrointestinal bleeding. PLAN: Currently, he is on Lovenox 150 mg subcutaneously every 12 hours, continue that. Continue DuoNebs treatments 4 times a day and then a short burst of Solu-Medrol. I will recheck a blood gas in the morning. I ordered him some BiPAP at 50%, 03/01 with a backup rate of 16. We will see if we can use this at night. Despite what his told me that he did not have any sleep apnea, he has occasional loud snoring. He appears to hypoventilate and he is a mouth breather. We will see if we can get him a 50% BiPAP with a full facemask to see him get his CO2 retention down, treat for underlying COPD with steroids and nebulizer treatments and also, he is on Lovenox. He should get his IVC filter tomorrow morning; I concur with this. Most likely, it was small clot that broke total free from the leg and travelled to his lungs. No residual clots noted or could be in his iliac system. I think the benefits of an IVC filter in this man who has been bedbound for the last month or two, the benefits outweigh the risk: Deferred IR as to when to stop the Lovenox. We could even use IV heparin by a bolus infusion and then a maintenance drip and then stop it 3 hours prior to insertion of the IVC filter. Defer that to Interventional Radiology. We will follow up his blood gases in the morning and then I would probably consider whether we do Lovenox after the IVC filter is in place or just maybe, at some point in time, put him back on Eliquis at a lower dose, may be 2.5 mg b.i.d. for his atrial fibrillation. Most likely, this will be life-long to prevent any thrombotic strokes and further pulmonary emboli. Repeat CT angio of his chest in 6 months would be indicated just to make sure it has resolved his pulmonary emboli. The patient, in the future, may need either full PFTs or spirometry to see if he has COPD and either a home sleep study or some sort of sleep study may be indicated to see if he has obstructive and/or central sleep apnea. [address] [address] CONSULTATION Name: NED BROWN Room: [address] IN ..#: [id number] Admission: 06/24/18 Attend Phys: Jess Carlton MD Discharge: Date of : 37 Report #: [id number] This has been a 36-minute critical care consult on the patient. <ELECTRONICALLY SIGNED> By: Navdeep Brewster MD 06/27/18 1014 [id number] [id number] Brewster MD /nt
[2018-06-27 11:42] LABS: ALBUMIN 1.9 g/dL (3.4-5.0); CALCIUM 7.8 mg/dL (8.5-10.1); CREATININE 0.8 mg/dL (0.6-1.3); POTASSIUM 3.7 mmol/L (3.5-5.1); TOTAL BILIRUBIN 0.7 mg/dL (<0.1-1.0); TOTAL PROTEIN 5.3 g/dL (6.4-8.2)
--- NOTE | 2018-06-27 12:17 | NUR ---
Nutrition: Pt assessed for high BMI. Admitted with CHF exac. Usual wt ~350#. Current wt: 378#. H/o CHF, DM II, JOSE, morbid OBE, Lt BKA. Some edema. BG 141, alb 1.9, prealb 28.8. Will get sleep study. Bipap at [facility]. No nutrition interventions needed at this time. Consider mild to low risk.
[2018-06-27 12:25] VITALS: BP 115/63
[2018-06-27 16:48] VITALS: BP 117/57
--- NOTE | 2018-06-27 18:17 | NUR ---
NURSE FOUND MODERATE AMOUNT OF BLOOD ON PT PAD IN BED. PRESSURE APPLIED ON R GROIN AREA. DR GEE (VASCULAR PAGED REGARDING BLOOD THINNER SITUATION. PT IS STABLE. ABDOMINAL CREASES AND ARMPIT AREA WASHED AND INTERDRY PLACED. MEDICINE ADMINISTERED ORDERED. WILL CONTINUE TO MONITOR
--- NOTE | 2018-06-27 18:45 | NUR ---
SPOKE WITH DR GEE. HE WANTS TO HOLD LOVENOX TONIGHT FROM HIS POINT OF VIEW BECAUSE OF BLOOD RESIDUAL FROM R GROIN POST IVC PLCMNT
[2018-06-27 20:10] VITALS: BP 98/54
[2018-06-28] VITALS: BP 134/70
[2018-06-28 04:00] VITALS: BP 114/61
--- NOTE | 2018-06-28 05:10 | NUR ---
PT CARE ASSUMED AT 1930. SAT DECREASED TO 89%, O2 TITRATED TO 6L NC. PT IS AWAKE AND CONFUSED, FOLLOWS COMMANDS. DENIES PAIN. HOURLY ROUNDING DONE FOR PT SAFETY. SOB AT REST AT TIMES. ISOLATION PRECAUTIONS MAINTAINED FOR MRSA.
[2018-06-28 05:42] LABS: HEMATOCRIT 28.2 % (42.0-52.0); HEMOGLOBIN 9.1 gm/dL (14.0-18.0); MCH 28.9 pg (26.0-34.0); MCHC 32.3 g/dL (28.0-37.0); MCV 89.2 fL (80.0-100.0); MPV 7.6 fl. (7.2-11.1); NUCLEATED RBCS 0 /100WBC; PLATELET COUNT* 176 thou/uL (150-400); RBC 3.16 mil/uL (4.50-6.00); RDW-CV 17.3 % (10.5-14.5); WBC 8.8 thou/uL (4.0-11.0)
[2018-06-28 06:04] LABS: CALCIUM 7.7 mg/dL (8.5-10.1); CREATININE 0.9 mg/dL (0.6-1.3); POTASSIUM 3.4 mmol/L (3.5-5.1)
[2018-06-28 06:25] LABS: ABSOLUTE LYMPHOCYTES 0.6 thou/uL (0.8-5.3); ABSOLUTE MONOCYTES 0.4 thou/uL (0.0-1.2); ABSOLUTE NEUTROPHILS 7.7 thou/uL (1.6-8.1); MYELOCYTES 1 %; PLATELET ESTIMATE ADEQUATE
[2018-06-28 06:26] LABS: ANISOCYTOSIS 1+; POIKILOCYTOSIS 1+
[2018-06-28 08:00] VITALS: BP 113/56
--- NOTE | 2018-06-28 08:00 | NUR ---
ASSUMED CARE OF PT AT 0730. PT RESTING IN BED WAITING FOR BREAKFAST. PT A&0X4, FORGETFUL AND CONFUSED AT TIMES. DEMENTIA NOTED. PT IS PECHANGA. PT TRACING AFIB ON THE BINDER LAYER. RATE CONTROLLED. PT ON 6L NC SAT 96%, TITRATED TO 5L NC SAT 94%. PT DENIES ANY PAIN OR SHORTNESS OF BREATH AT THIS TIME. PT INCONT OF BOWEL AND BLADDER. PT IN CONTACT ISOLATION FOR MRSA. LEFT BKA NOTED. PT ON BEDREST. PT AT BEDSIDE. AM ASSESSMENT CHARTED. MEDICATIONS PER JUL. PT REPOSITIONED EVERY 2 HOURS FOR COMFORT. HOURLY ROUNDING OBSERVED. BED IN LOW POSITION. BED ALARM IN PLACE. FALL PRECAUTIONS IN PLACE. CALL LIGHT WITHIN REACH. WILL CONTINUE PLAN OF CARE.
[2018-06-28 12:00] VITALS: BP 130/64
--- NOTE | 2018-06-28 12:50 | OP ---
[address] [address] OPERATIVE REPORT Name: NED BROWN Room: [address] IN M.R.#: [id number] Admission: 06/24/18 Attend Phys: Kemal Carlton MD Discharge: Date of : 37 Report #: [id number] THIS REPORT FOR: //name// CC: Kemal Patterson DATE OF SERVICE: 06/26/2018 PREOPERATIVE DIAGNOSIS: Pulmonary embolism with inability to anticoagulate long-term. POSTOPERATIVE DIAGNOSIS: Pulmonary embolism with inability to anticoagulate long-term. OPERATION: 1. Ultrasound-guided access to right common femoral vein. 2. Venacavogram. 3. Placement of IVC filter. SURGEON: Anshu Dior DO. BIODIESEL PROCESSING TECHNICIAN: property technician. ANESTHESIA: Local. ESTIMATED BLOOD LOSS: Less than 10 mL. FLUIDS: Less than 100 mL. IMPLANTS: Bard Mccormick IVC filter. FINDINGS: Ultrasound demonstrated right common femoral vein to be soft, compressible, and suitable for access. Initial venacavogram demonstrated patent iliocaval confluence and inferior vena cava without evidence of thrombus, left renal vein was noted to be in fairly low position about the level of 3. Filter was deployed below this level and good position with no extravasation of contrast. CLINICAL HISTORY: Again, the patient is an 82-year-old man with pulmonary embolism with concerns about long-term anticoagulation. We have been asked to place filter for protection against further thromboembolic events. DETAILS OF PROCEDURE: After informed consent was obtained, the patient was taken to the angio suite, placed on the angio bed in supine position. His right groin was prepped and draped in usual sterile fashion. Full timeout was performed, identifying correct patient and procedure. [address] [address] OPERATIVE REPORT Name: NED BROWN Room: [address] IN M.R.#: [id number] Admission: 06/24/18 Attend Phys: Kemal Carlton MD Discharge: Date of : 37 Report #: [id number] Using ultrasound guidance, the right common femoral vein was identified. Skin and subcutaneous tissues were anesthetized with lidocaine anesthetic, was accessed with an 18-gauge needle. These ultrasound images were preserved. Using Seldinger technique, a Bentson wire was passed under fluoroscopic guidance at the IVC. A small skin incision was made. I then passed the introducer sheath over the wire into the distal IVC, performed the ileal venacavogram. The findings are noted above. I then replaced the wire, advanced the catheter up to the level of the left renal vein. I then removed the wire and the dilator and positioned the filter there, deployed the filter in standard fashion. Followup imaging confirmed filter to be in good position with no extravasation of contrast. The sheath was removed. Manual pressure was held in the right groin for 10 minutes. Once hemostasis was ensured, sterile dressing was applied. All sponge, sharp and instrument counts reported correct x 2. He tolerated the procedure well and was transferred back to his room in stable condition. <ELECTRONICALLY SIGNED> By: Anshu Dior DO 06/28/18 1250 1303 [id number] Dior DO /nt
[2018-06-28 16:00] VITALS: BP 146/84; BP 95/54
--- NOTE | 2018-06-28 17:37 | NUR ---
NO ACUTE CHANGES THROUGHOUT SHIFT. REFER TO CHARTING. PT MORE RECEPTIVE AND COMPLIANT THIS AFTERNOON. PT COMPLIANT WITH AFTERNOON MEDICATIONS. REFER TO EMAR. PT DENIES ANY PAIN OR SHORTNESS OF BREATH THROUGHOUT AFTERNOON. PT CONTINUES TO BE ON 5L NC SAT UPPER 90'S. AT BEDSIDE THROUGHOUT SHIFT. PT ATTEMPTED TO WORK WITH PHYSICAL THERAPY THIS AFTERNOON- MAX ASSIST X 2 TO EDGE OF BED. PT INCONT OF URINE THROUGHOUT SHIFT. TOTAL BATH GIVEN, NEW INNER DRY PLACED TO ABDOMINAL FOLDS. PT CONTINUES TO BE A&0X3-4 FORGETFUL AT TIMES. CONTINUES TO TRACE AFIB ON THE SOIL BIOLOGY TEACHER. PT NOT PROGRESSING TOWARDS GOALS. MEDICATIONS PER JUL. PT REPOSITIONED EVERY 2 HOURS FOR COMFORT. HOURLY ROUNDING OBSERVED. BED IN LOW POSITION. BED ALARM IN PLACE. FALL PRECAUTIONS IN PLACE. CALL LIGHT WITHIN REACH. WILL CONTINUE PLAN OF CARE.
[2018-06-29] VITALS: BP 109/61
[2018-06-29 05:00] LABS: ABSOLUTE BASOPHILS 0.1 thou/uL (0.0-0.2); ABSOLUTE EOSINOPHILS 0.1 thou/uL (0.0-0.7); ABSOLUTE LYMPHOCYTES 0.7 thou/uL (0.8-5.3); ABSOLUTE MONOCYTES 0.6 thou/uL (0.0-1.2); ABSOLUTE NEUTROPHILS 6.4 thou/uL (1.6-8.1); BASOPHILS 0.8 %; EOSINOPHILS 1.8 %; HEMATOCRIT 27.9 % (42.0-52.0); HEMOGLOBIN 9.1 gm/dL (14.0-18.0); LYMPHOCYTES 8.9 %; MCH 28.9 pg (26.0-34.0); MCHC 32.5 g/dL (28.0-37.0); MPV 8.6 fl. (7.2-11.1); NUCLEATED RBCS 0 /100WBC; PLATELET COUNT* 182 thou/uL (150-400); POLYS 80.5 %; RBC 3.13 mil/uL (4.50-6.00); RDW-CV 18.1 % (10.5-14.5); WBC 7.9 thou/uL (4.0-11.0)
[2018-06-29 08:00] VITALS: BP 149/70
--- NOTE | 2018-06-29 08:01 | NUR ---
PT CARE ASSUMED AT 1930. SAT DECREASED TO 84%, O2 TITRATED TO 7L HFNC. PT IS CONFUSED. CALL LIGHT WITHIN REACH AND BED IN LOW POSITION. DENIES PAIN AND SOB. GETS AGITATED AT TIMES. HOURLY ROUNDING DONE FOR PT SAFETY. SPOUSE PRESENT AT BEDSIDE WHOLE NIGHT.
[2018-06-29 08:56] LABS: ALBUMIN 2.1 g/dL (3.4-5.0); CALCIUM 8.2 mg/dL (8.5-10.1); CREATININE 0.8 mg/dL (0.6-1.3); POTASSIUM 3.9 mmol/L (3.5-5.1); TOTAL BILIRUBIN 0.7 mg/dL (<0.1-1.0); TOTAL PROTEIN 6.1 g/dL (6.4-8.2)
--- NOTE | 2018-06-29 09:00 | NUR ---
PT TOLERATES BIPAP FOR LESS THAN 5 MIN. FAMILY AT BS AND DISCUSSED PLAN OF CARE. FAMILY TO DISCUSS WITH DR SINGH THIS AM
[2018-06-29 12:00] VITALS: BP 144/66
--- NOTE | 2018-06-29 12:07 | NUR ---
Following for d/c planning needs. Physician had family conference this morning. Spoke with family and they are in agreement with hospice. Spouse and other family members do not think that they will be able to care for pt at home. Discussed options of returning home with hospice, hospice at [facility] and hospice house. Explained that insurance would not pay for room at board at [facility]. Family said they are not able to pay. Discussed options of hospice [facility], and family chose [facility]. Called and spoke with intake. Hospice nurse called back and said she will do on-site evaluation of pt and informational meeting. Printed copies of H&P, face sheet and current labs, along with pulmonary consult for hospice nurse. Left with assistant community director. Will await input from hospice nurse and family re: d/c.
[2018-06-29 16:00] VITALS: BP 133/68
--- NOTE | 2018-06-29 16:29 | NUR ---
PT UNRESPONSIVE SINCE APPROX 11 AM. TACHYPNEIC,GASPING FOR AIR THIS PM. PT DUSKY. DISCUSSED DYING PROCESS WITH FAMILY. PT IS DNR PER FAMILY REQUEST DR SINGH CALLED. ORDERS RECEIVED
[2018-06-29 16:35] VITALS: BP 133/68
--- NOTE | 2018-06-29 16:45 | NUR ---
PT UNRESPONSIVE TO NAME OR TOUCH SINCE THIS AFTERNOON. NPO TACHYPNEIC-MEDS GIVEN ORDERED. PT INCONTINENT OF URINE. REPOSITIONED FREQUENTLY. FAMILY PLANS FOR PT TO BE DISCHARGED TO HOSPICE HOUSE IN AM. AFIB ON MONITOR
[2018-06-29 20:10] VITALS: BP 124/44
--- NOTE | 2018-06-29 22:57 | CON ---
[facility] [address] [place] [address] CONSULTATION Name: NED BROWN Room: [address] M.R.#: [id number] Admission: 06/24/18 Attend Phys: Kemal Carlton MD Discharge: Date of : 39 Report #: [id number] THIS REPORT FOR: //name// CC: Kemal Gleason MD DATE OF SERVICE: 06/26/2018 REFERRING PHYSICIAN: Kemal Carlton M.D. REASON FOR CONSULTATION: Evaluate for possible colonoscopy. IMPRESSION: 1. Recent bout of melena of uncertain etiology with negative EGD - colonoscopy recommended, but had to be deferred due to respiratory failure. 2. Chronic hypercapnic respiratory failure with obstructive sleep apnea with associated obesity hypoventilation syndrome. 3. Morbid obesity. 4. Recent pulmonary embolus with recent placement of an IVC filter. 5. Mild anemia, which has not required any blood transfusions. 6. Diabetes. 7. Mild dementia. RECOMMENDATIONS: 1. At the present time, the patient is not the best candidate to undergo any endoscopic studies secondary to the fact he is still on 5 L of oxygen. He still has hypercapnia and as such, is at high risk for decompensation while getting sedation with MAC sedation. 2. If the patient should need to undergo colonoscopy, he would probably need a 2-day bowel preparation due to his large size and he would likely need to be intubated for the procedure or at least have an LMA or possibly BiPAP for the procedure because of his large size and the fact that it may be a difficult colonoscopy to perform. At the present time, requiring not to do a colonoscopy, but if he should have any further bleeding, this would need to be done and we would have to discuss this for the patient again with his . 3. The patient is not a good candidate for anticoagulation secondary to his recent GI bleed and he has now had IVC filter placed. Hopefully, this will take care of any further problems that he might have with recurrent pulmonary emboli. I have discussed these plans with the patient as well as his and son and they are agreeable to conservative management at this time. HISTORY OF PRESENT ILLNESS: An 82-year-old white male with multiple [facility] [address] [place] [address] CONSULTATION Name: NED BROWN Room: [address] IN [facility].#: [id number] Admission: 06/24/18 Attend Phys: Kemal Carlton MD Discharge: Date of : 39 Report #: [id number] comorbidities, who was recently hospitalized here for issues related to respiratory failure and anemia with associated melena and underwent upper endoscopy by my partner, Dr. Clancy, which revealed some mild erosive gastritis which was related to H. pylori infection. We just recently got the biopsies back, which confirmed the same. He has not had any further bleeding since that hospital stay. He did not have any further black stools. Stools have been brown. He denies complaints of any dysphagia, odynophagia, postprandial pain or any problem with his bowels or bowel frequency. However, he does take some laxatives at home to help keep his bowels moving. He has undergone endoscopic studies of his lower GI tract in the past, last of which was performed back in 2005 by me and was unrevealing. He has no known family history of any colon polyps or colon cancer. He has no family history of inflammatory bowel disease, including ulcerative colitis or Crohn's. He is currently hospitalized for problems related to respiratory failure at this time. ALLERGIES: HIS ALLERGIES ARE TO BENZODIAZEPINE. MEDICATIONS: Include carvedilol, rosuvastatin, insulin, melatonin, ipratropium bromide, Aricept, Haldol, prednisone and pantoprazole. PAST MEDICAL AND SURGICAL HISTORY: Remarkable for chronic atrial fibrillation, hypertension, hyperlipidemia, diabetes, morbid obesity, obesity hypoventilation syndrome and COPD. SOCIAL HISTORY: The patient does not smoke or drink. FAMILY HISTORY: Negative. PHYSICAL EXAMINATION: GENERAL: Revealed pleasant 82-year-old gentleman who is currently on 5 liters, does not appear to be in any distress. CARDIOPULMONARY EXAMINATION: Revealed a regular rate and rhythm. LUNGS: Clear. ABDOMEN: Soft and not tender. I could not really appreciate an obvious organomegaly or masses. He weighs over 380 pounds. LABORATORY DATA: His last blood gas from yesterday revealed a pH of 7.39, pCO2 of 64 and pO2 is 140 and was on a BiPAP setting of 16/8 and 50% FiO2. His CBC from yesterday revealed a white count of 11.5, hemoglobin 9.4, platelet count 224,000, MCV is 90.2 and RDW 17.0. His sodium 142, potassium 3.4, chloride 105, bicarbonate is 35, his BUN is 17, creatinine 0.9 and GFR of 81. DISCUSSION: At the present time, the patient is not the best candidate to undergo any endoscopic studies. We will wait for Pulmonary to give us the okay with regards to the same. If it is so, he will need a 2-day bowel preparation and would likely need an LMA or BiPAP for the procedure, not just MAC sedation [place] [id number] CONSULTATION Name: NED BROWN [place] Room: [address]#: [id number] Admission: 06/24/18 Attend Phys: Kemal Carlton MD Discharge: Date of : 39 Report #: [id number] due to his respiratory status. This will need to be coordinated with anesthesia to provide the best possible care for this elderly gentleman. <ELECTRONICALLY SIGNED> By: Winston Osman DO 06/29/18 [id number] Osman DO /nt
[2018-06-30] VITALS: BP 91/31
--- NOTE | 2018-06-30 00:52 | NUR ---
PT CARE ASSUMED AT 1930. PT IS UNRESPONSIVE. SAT 81% IN 15L HFNC, ATTEMPTED TO PLACE NON REBREATHER MASK, FAMILY REFUSED TO PUT HIM ON NRB MASK, ALSO REFUSES HIS TURNS AND ANTIBIOTIC. WANTS US TO JUST PROVIDE COMFORT CARE.
--- NOTE | 2018-06-30 01:48 | NUR ---
AT 0105, PT HEART RATE DROPPED TO 30'S. PT'S RESPIRATIONS SHALLOW. AT BEDSIDE, PT UNRESPONSIVE, EXHIBITED TO SIGNS OF PAIN. AT 0109, HEART MONITOR READ ASYSTOLE. MAYA YANG AND MYSELF ASCULTATED PT FOR 1 MINUTE. TIME OF AT 0110. [facility] CONTACTED WITHIN 1 HR. NOT CANDIDATE FOR DONATION. CONTACTED CONSULTING PHYSICIANS AND LEFT MESSAGE. PER PATIENT REQUEST, [facility] CONTACTED AT 0148.
== END 2018-06-30 03:42 | DRG 166 ==
LOC: M.ERS 14:47 → M.2W 15:55 → M.TBA-ER 15:55 → M.2W 18:27
PROVIDERS: Family Medicine; Internal Medicine; Internal Medicine Gastroenterology; Internal Medicine Pulmonary Disease; ADMIT Internal Medicine
DX: I26.99 Other pulmonary embolism without acute cor pulmonale (principal); J18.9 Pneumonia, unspecified organism; J96.21 Acute and chronic respiratory failure with hypoxia; J96.22 Acute and chronic respiratory failure with hypercapnia; Z68.43 Body mass index [BMI] 50.0-59.9, adult; E66.2 Morbid (severe) obesity with alveolar hypoventilation; D68.32 Hemorrhagic disorder due to extrinsic circulating anticoagulants; K92.2 Gastrointestinal hemorrhage, unspecified; Z66 Do not resuscitate; I50.9 Heart failure, unspecified; E11.40 Type 2 diabetes mellitus with diabetic neuropathy, unspecified; D64.9 Anemia, unspecified; F03.90 Unspecified dementia, unspecified severity, without behavioral disturbance, psychotic disturbance, mood disturbance, and anxiety; I48.2 Chronic atrial fibrillation; E78.5 Hyperlipidemia, unspecified; B96.81 Helicobacter pylori [H. pylori] as the cause of diseases classified elsewhere; J44.9 Chronic obstructive pulmonary disease, unspecified; E11.51 Type 2 diabetes mellitus with diabetic peripheral angiopathy without gangrene; Z89.512 Acquired absence of left leg below knee; Z87.891 Personal history of nicotine dependence; Z79.4 Long term (current) use of insulin; Z79.899 Other long term (current) drug therapy; Z88.8 Allergy status to other drugs, medicaments and biological substances; Z83.3 Family history of diabetes mellitus; Z82.49 Family history of ischemic heart disease and other diseases of the circulatory system